=== PATIENT | male | born 2000 | race Caucasian/White ===

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

== ENCOUNTER 2021-02-26 21:50 | Emergency (ER) | payer OTHER ==
[~2021-02-26] VITALS: Ht 182.9 cm; Wt 127.0 kg
[~2021-02-26 21:50] MED LIST changes: +LIDODERM1 EACH TRANSDERM; +MEDROLDOSEPACK PO
[2021-02-26] MEDS ORDERED: FLOMAX0.4 MG PO (22:28)
[2021-02-26] MEDS ORDERED: HYDROCODON-ACE1 EAC8 PO (22:28)
[2021-02-26] MEDS ORDERED: ZOFRAN ODT4 MG PO (22:28)
[2021-02-26 22:55] LABS: ABSOLUTE EOSINOPHILS 0.2 thou/uL (0.0-0.7); ABSOLUTE MONOCYTES 1.1 thou/uL (0.0-1.2); ABSOLUTE NEUTROPHILS 5.4 thou/uL (1.6-8.1); BASOPHILS 0.4 %; EOSINOPHILS 2.1 %; HEMATOCRIT 42.3 % (42.0-52.0); HEMOGLOBIN 14.3 gm/dL (14.0-18.0); LYMPHOCYTES 23.1 %; MCH 29.5 pg (26.0-34.0); MCHC 33.8 g/dL (28.0-37.0); MCV 87.4 fL (80.0-100.0); MONOCYTES 12.4 %; NUCLEATED RBCS 0 /100WBC; PLATELET COUNT* 332 thou/uL (150-400); RBC 4.84 mil/uL (4.50-6.00); RDW-CV 13.5 % (10.5-14.5); WBC 8.8 thou/uL (4.0-11.0)
[2021-02-26 23:04] LABS: CALCIUM 9.2 mg/dL (8.5-10.1); CREATININE 1.2 mg/dL (0.6-1.3); POTASSIUM 3.7 mmol/L (3.5-5.1)
[2021-02-27] MEDS ORDERED: BACTRIM DS TAB1 EACH PO (01:19)
[2021-02-27] MEDS ORDERED: KEFLEX500 M1 PO (01:19)
[2021-02-27] MEDS ORDERED: HYDROCODON-ACE1 EAC8 PO (01:19)
[2021-02-27] MEDS ORDERED: MUPIROCIN15 GM TOP (01:19)
[2021-02-27 01:22] VITALS: BP 140/88
== END 2021-02-27 01:22 | disposition home or self-care (01) ==
LOC: M.ERS 21:50
PROVIDERS: Emergency Medicine
DX: L02.216 Cutaneous abscess of umbilicus (principal); Z90.89 Acquired absence of other organs